=== PATIENT | female | born 1980 | race Two or more races ===

== ENCOUNTER 2024-07-02 19:53 | Emergency (ER) | payer MEDICAID, SELFPAY ==
[2024-07-02 19:54] VITALS: BMI 37.7
[2024-07-02 20:32] VITALS: BP 124/82; PULSE 80; RESP 18; TEMP 36.9; O2SAT 100
--- NOTE | 2024-07-02 21:08 | XR_ITS ---
Examination: CT abdomen with intravenous contrast CT pelvis with intravenous contrast 2-D coronal reconstructions 2-D sagittal reconstructions Date and time of exam:July 02, 2024 at 1052 hours Comparison November 29, 2023 INDICATIONS: Early pain today. CTDI: vol (mGy) 16.20 DLP: (mGycm) 933 Technique: Multiple axial sections of the abdomen and pelvis have been obtained. 64 slice high-resolution scanner used. 3 mm axial sections have been obtained, post intravenous injection 60 cc [id number] 2-D sagittal, coronal reconstructions obtained. Low dose protocols were performed. One or more of the following dose reduction techniques were used; automated exposure control, adjustment of the mA and/or KV according to patient size, use of iterative reconstruction technique. Findings: Small retrocardiac hernia Focal liver or splenic lesion Absent gallbladder 3 cm umbilical hernia containing incarcerated fat Normal appendix No obstruction Uterine areas of fibroid degeneration IMPRESSION: 3 cm umbilical hernia containing incarcerated fat
--- NOTE | 2024-07-02 21:12 | PD.EDRME ---
Rapid Medical Screening Exam RME Arrival date/time: 07/02/24 19:53 44-year-old female with a ventral hernia reports with complaints of pain and inability to reduce the hernia since today Chief Complaint: Abdominal Pain Time Seen by Provider: 07/02/24 20:12 Vital signs: Vital Signs Temperature 98.4 F 07/02/24 20:32 Pulse Rate 80 07/02/24 20:32 Respiratory Rate 18 07/02/24 20:32 Blood Pressure 124/82 07/02/24 20:32 Pulse Oximetry (%) 100 07/02/24 20:32 Oxygen Delivery Method Room Air 07/02/24 20:32
[2024-07-02 21:59] LABS: Basophils # (Auto) 0.1 Thou/mm3 (0.0-0.2); Basophils % (Auto) 1 % (0-2.5); Eosinophils # (Auto) 0.2 Thou/mm3 (0.0-0.5); Eosinophils % (Auto) 2 % (0-10); Hematocrit 25.9 % (36.0-46.0); Immature Granulocytes % (Auto) 0 % (0-0); Immature Granulocytes Auto 0.02 Thou/mm3 (0.00-0.00); Lymphocytes # (Auto) 2.5 Thou/mm3 (1.0-4.8); Lymphocytes % (Auto) 28 % (10-50); Mean Corpuscular Hemoglobin 17.7 pg (25.0-35.0); Mean Corpuscular Volume 61 fL (80-100); Monocytes # (Auto) 0.6 Thou/mm3 (0.0-0.8); Monocytes % (Auto) 7 % (0-12); Neutrophils # (Auto) 5.3 Thou/mm3 (1.8-7.7); Neutrophils % (Auto) 62 % (37-80); Nucleated Red Blood Cell % 0 /100 WBC (0); Platelet Count 275 Thou/mm3 (140-440); RDW Standard Deviation 40.9 fL (36.4-46.3); Red Blood Count 4.24 Miln/mm3 (4.00-5.20); White Blood Count 8.7 Thou/mm3 (3.6-11.0)
[2024-07-02 22:01] LABS: Hemoglobin 7.5 g/dL (12.0-16.0)
[2024-07-02 22:09] LABS: Collection Type, Urine Clean Catch
[2024-07-02 22:24] LABS: Alanine Aminotransferase 12 U/L (10-49); Albumin, Serum 4.4 gm/dL (3.5-5.0); Albumin/Globulin Ratio 1.6 (1.2-2.2); Alkaline Phosphatase 97 U/L (46-116); Anion Gap 7 (7-16); Aspartate Amino Transferase 16 U/L (0-34); BUN/Creatinine Ratio 40 Ratio (12-20); Bilirubin,Total 0.4 mg/dL (0.3-1.2); Blood Urea Nitrogen 20 mg/dL (9-23); Calcium 8.9 mg/dL (8.3-10.6); Calcium (Corrected) 8.9 mg/dL (8.5-10.1); Carbon Dioxide 23.8 mMol/L (20.0-31.0); Chloride 110 mMol/L (98-107); Creatinine (Component) 0.5 mg/dL (0.6-1.3); Estimated Creatinine Clearance 188.9 mL/min (>60); Globulin 2.8 gm/dL (2.3-3.5); Glucose 87 mg/dL (74-106); Osmolality,Calculated 282 (275-295); Potassium 4.2 mMol/L (3.4-5.1); Sodium 141 mMol/L (136-145); Total Protein 7.2 gm/dL (5.7-8.2); eGFR > 60 See Note
[2024-07-02 22:35] LABS: HCG,Qualitative Serum Negative
[2024-07-02 23:33] LABS: Bilirubin,Urine Negative (Negative); Blood,Urine Negative (Negative); Clarity,Urine Clear (Clear/Hazy); Color,Urine Colorless (Lt Yel-Yel); Glucose, Urine Negative (Negative); Ketones,Urine Negative (Negative); Leukocyte Esterase,Urine Positive (Negative); Nitrite,Urine Negative (Negative); Protein,Urine Trace (Neg - Trace); RBC,Urine 6 /hpf (0-3); Squamous Epithelial Cell,Urine 4 /hpf (0-5); Urobilinogen,Urine Negative mg/dL (0.0-1.0); WBC,Urine 7 /hpf (0-5)
--- NOTE | 2024-07-03 00:04 | PRELIM_ITS ---
CT scan of the abdomen and pelvis with intravenous contrast (axial sections with sagittal and coronal reformats) July 02, 2024 2252 hours Clinical History: Hernia r/o incarciration. Comparison: No prior study is available for comparison. Findings: The lung bases are clear. The gallbladder is surgically absent. Gastric sleeve surgery changes are noted. The liver, gallbladder, pancreas, spleen, kidneys and adrenals are unremarkable. No evidence of bowel obstruction. There is small to moderate sized fat containing umbilical hernia with fat stranding. A moderate amount of fecal material is present in the colon. The appendix is within normal limits (coronal images 68-76/173). There is no mesenteric or retroperitoneal adenopathy. The urinary bladder is unremarkable. There are uterine fibroids and nabothian cysts. There is no free fluid or free air. The osseous structures are unremarkable. Impression: Small to moderate sized fat containing umbilical hernia with fat stranding, concerning for fat incarceration. No evidence of bowel obstruction. Report Electronically Signed By: Ney Garrison 07/03/2024 12:03:42 AM [EST]
--- NOTE | 2024-07-03 02:37 | PD.EDABDPN ---
ED Abdominal Pain RME/HPI General Chief Complaint: Abdominal Pain Stated complaint: HERNIA PAIN Time seen by provider: 07/02/24 20:12 Arrival date/time: 07/02/24 19:53 Limitations: no limitations RME / HPI RME / HPI narrative: 07/02/24 19:53 44-year-old female with a ventral hernia reports with complaints of pain and inability to reduce the hernia since today. Dr. [facility] Main ED Evaluation: 44-year-old female with history of hernia reporting pain in the umbilical area that started today. The pain was intermittent and then constant at a 3 out of 10 without radiation. The patient states no fevers, nausea or vomiting. The patient has pain like this in the past but it increased today. Normal bowel movement recently. The patient states that she gets followed by bariatric surgery as she has an appoint with him tomorrow. She has a known hernia and they are attempting to schedule a robotic surgery but today she had increasing pain. No vomiting. Patient felt there was gurgling in her stomach but she was still able to pass gas. No fevers. Related Data Home Medications ?Medication ?Instructions ?Recorded ?Confirmed ergocalciferol (vitamin D2) 1,250 1,250 mcg PO QWEEK 08/18/21 04/23/22 mcg (50,000 unit) capsule levothyroxine 137 mcg tablet 137 mcg PO QDAY 08/18/21 04/23/22 Previous Rx's ?Medication ?Instructions ?Recorded hydrocortisone acetate 25 mg 25 mg [place] BID #24 ea 08/06/22 rectal suppository (Anusol-HC) meclizine 50 mg tablet 50 mg PO BID PRN dizziness #20 tabs 03/26/23 albuterol sulfate 90 mcg/actuation 2 puff inhalation Q6H PRN 06/27/23 aerosol inhaler (Ventolin HFA) shortness of breath or wheezing #8.5 grams dicyclomine 20 mg tablet 20 mg PO BID #14 tabs 11/29/23 prednisone 50 mg tablet 50 mg PO QDAY #7 tabs 02/11/24 Allergies Allergy/AdvReac Type Severity Reaction Status Date / Time No Known Allergies Allergy Verified 03/19/24 10:57 Review of Systems Review of Systems Systems Reviewed: All systems reviewed, normal except as documented Past Medical History Past Medical History NEUROLOGIC: Negative Neurological Disorders or Seizures CARDIAC: Negative Cardiac Disorders or Congestive Heart Failure RESPIRATORY: Negative Chronic Obstructive Pulmonary Disease (COPD) or Asthma GASTROINTESTINAL: Positive Gastrointestinal Disorders, Hiatal Hernia, Gastroesophageal Reflux Disease and Obesity; Negative Hepatitis or Colorectal Cancer GENITOURINARY: Negative Genitourinary Disorders or Renal Disease REPRODUCTIVE: Positive Previous Pregnancies; Negative Breast Cancer MUSCULOSKELETAL: Positive Arthritis; Negative Musculoskeletal Disorders or Bone Cancer ENDOCRINE: Positive Endocrine Disorders and Hypothyroidism; Negative Diabetes Mellitus Type 1 or Diabetes Mellitus Type 2 HEMATOLOGIC: Negative Blood Disorders or Sickle Cell Disease PSYCHO/SOCIAL: Positive Anxiety OTHER HISTORY: Positive Hospitalization; Negative Autoimmune Disease, Down Syndrome, Developmental Delay, Shingles, Falls, Blood Transfusions, Blood Transfusion Reaction, Anesthesia Reactions, Organ Transplant, Chemotherapy, Radiation Therapy, Hyperbaric Therapy, MRSA, VRSA, Vancomycin-Resistant Enterococci, Human Immunodeficiency Virus (HIV), Chicken Pox, Measles, Mumps, Rubella (L[place]uanian Measles), Pertussis, Clostridium Difficile, Cancer, Breast Cancer, Cervical Cancer, Colorectal Cancer, Lung Cancer or Ovarian Cancer Family History FAMILY HISTORY: Positive Family Respiratory Disorders, Family Cardiac Disorders and Family Gastrointestinal Problems; Negative Family Psychiatric Problems, Family Cancer, Family Surgery or Family Anesthesia Reaction Surgical History SURGICAL: Positive Abdominal Surgery, Open Reduction Internal Fixation and Section; Negative Organ Transplant Social History SMOKING STATUS: Never smoker SECOND HAND EXPOSURE: No SUBSTANCE USE: does not use ED Exam General Limitations: Present no limitations General appearance: Present alert and other (Minimal distress) Head Head exam: Present atraumatic Eye Eye exam: Present normal appearance, PERRL and EOMI ENT ENT exam: Present normal exam, normal oropharynx and mucous membranes moist Neck Neck exam: Present normal inspection, full ROM and trachea midline Chest Chest inspection: Present normal inspection and symmetric chest wall rise Respiratory Respiratory exam: Present normal lung sounds bilaterally Cardiovascular Cardiovascular exam: Present regular rate, normal rhythm and normal heart sounds Abdominal Exam Abdominal exam: Present other (Minimal umbilical fullness with tenderness to palpation. No overlying erythema or discoloration. No crepitus. Patient is guarding.) Extremities Exam Extremities exam: Present normal inspection and full ROM Back Exam Back exam: Present normal inspection Neurological Exam Neurological exam: Present alert and oriented X3 Psychiatric Psychiatric exam: Present normal affect and normal mood Skin Skin exam: Present warm, dry, intact and normal color Course Course Course Narrative: Placed in the bed at approximately 3 AM prior to that the patient was in the waiting room. Quality Measures none Orders Category Date Time Status CT Screening NOW Care 07/02/24 21:[address] abdomen pelvis w con Stat Exams 07/02/24 21:08 Taken CBC Stat Lab 07/02/24 21:40 Completed CMP [Comprehensive Metabolic Panel] Stat Lab 07/02/24 21:40 Completed HCG,Qualitative Serum Stat Lab 07/02/24 21:40 Completed UA [Urinalysis] Stat Lab 07/02/24 21:30 Completed Diazepam [Valium] Med 07/03/24 02:51 Discontinued 5 mg PO X1 ONE Reevaluation(s) Reevaluation #1: Improved pain. Patient able to tolerate liquids. Repeat abdominal exam shows no rebound. Vital Signs Vital signs: Vital Signs Temperature 98.4 F 07/02/24 20:32 Pulse Rate 80 07/02/24 20:32 Respiratory Rate 18 07/02/24 20:32 Blood Pressure 124/82 07/02/24 20:32 Pulse Oximetry (%) 100 07/02/24 20:32 Oxygen Delivery Method Room Air 07/02/24 20:32 Pulse ox is 100% on room air, which is normal according to my interpretation. Abdominal Pain MDM MDM Narrative MDM Narrative:: 44-year-old female with previous surgery coming in with known umbilical hernia with abdominal discomfort. CT scan does not show an obstruction, or strangulation or incarcerated hernia. The patient was placed in Trendelenburg and given p.o. Valium and the umbilical hernia was easily reducible on its own. No overlying erythema or change in color and do not suspect strangulation. Patient told that she should get an abdominal binder and to avoid constipation if possible. Return precautions are given and understood. Patient data External records reviewed:: [facility] previous records (Per chart review, patient was seen here on 04/02/24 for food bolus obstruction.) Clinical information provided by:: patient Social determinants that could affect healthcare access:: none Patient has the following chronic illnesses:: History of hernia, thyroid disease, vertigo How is presenting disease/condition affected by chronic disease/condition?: exacerbated by Evaluation data The following diagnostics were reviewed and interpreted by me:: lab results and radiology exam(s) Lab and/or radiology exams considered but not ordered:: None Interpretation Summary: White count is 8.7 and normal. Hemoglobin is 7.5/25 which is at the patient's baseline. Chronic anemia. Platelets are 275 normal. BUN/creatinine are normal. Patient has 7 white cells but no nitrates. At this time I do not feel the patient needs to be treated for UTI. Telerad Preliminary Report Draft Patient: KULDIP ALEMAN. Record#: [id number] Birthdate: 1980 Age/Sex: 44 / F Location: [facility] Attending Dr: Ordering Physician: Date of Service: Procedure(s): Accession Number(s): cc: ~ CT scan of the abdomen and pelvis with intravenous contrast (axial sections with sagittal and coronal reformats) July 02, 2024 2252 hours Clinical History: Hernia r/o incarciration. Comparison: No prior study is available for comparison. Findings: The lung bases are clear. The gallbladder is surgically absent. Gastric sleeve surgery changes are noted. The liver, gallbladder, pancreas, spleen, kidneys and adrenals are unremarkable. No evidence of bowel obstruction. There is small to moderate sized fat containing umbilical hernia with fat stranding. A moderate amount of fecal material is present in the colon. The appendix is within normal limits (coronal images 68-76/173). There is no mesenteric or retroperitoneal adenopathy. The urinary bladder is unremarkable. There are uterine fibroids and nabothian cysts. There is no free fluid or free air. The osseous structures are unremarkable. Impression: Small to moderate sized fat containing umbilical hernia with fat stranding, concerning for fat incarceration. No evidence of bowel obstruction. Report Electronically Signed By: Ney Garrison 07/03/2024 12:03:42 AM Medications / Prescriptions Medications or Prescriptions considered but not ordered:: None Medication administrations:: Medication Administration History Discontinued Medications Diazepam (Diazepam 5 Mg Tablet) 5 mg PO X1 ONE Stop: 07/03/24 02:52 Last Admin: 07/03/24 03:01 Dose: 5 mg Documented By: EF As above Consultations Consultation(s) initiated? (list below): No Consultation #1 (Physician, Specialty, Details): None Diagnosis Differential diagnosis abdominal pain: abdominal pain and other (Hernia, small bowel obstruction, incarcerated hernia, strangulated hernia, constipation,) Most likely diagnosis given after review of the tests above:: see below Admission Indicated Admission indicated?: not indicated Explain why admission is indicated or not indicated:: Patient with improved pain after sitting in the emergency department. CT scan does not show obstruction. Admission Request Was there a request for admission?: No Disposition Plan Disposition Plan: Discharge Discharge Attestation Discharge Attestation: The patient and all family members were given an opportunity to ask questions and understood the discharge instructions. Discharge instructions specifically effects, indications for sooner follow up or return to the emergency department, and the expected course of current diagnosis. Patient condition: Stable Discharge Plan Plan Patient Disposition: HOME (Self Care) Patient condition on transfer: Stable Prescriptions/Referrals Prescriptions/Med Rec: No Action levothyroxine 137 mcg tablet 137 mcg PO QDAY Patient Comments: TAKE 1 TABLET BY MOUTH EVERY DAY ergocalciferol (vitamin D2) 1,250 mcg (50,000 unit) capsule 1,250 mcg PO QWEEK Patient Comments: TAKE 1 CAPSULE BY MOUTH ONCE A WEEK dicyclomine 20 mg tablet 20 mg PO BID Qty: 14 0RF hydrocortisone acetate [Anusol-HC] 25 mg suppository 25 mg KY BID Qty: 24 0RF meclizine 50 mg tablet 50 mg PO BID PRN (Reason: dizziness) Qty: 20 0RF albuterol sulfate [Ventolin HFA] 90 mcg/actuation HFA aerosol inhaler 2 puff inhalation Q6H PRN (Reason: shortness of breath or wheezing) Qty: 8.5 0RF prednisone 50 mg tablet 50 mg PO QDAY Qty: 7 0RF Referrals: Ceci Cunningham [employer] [employer] [Primary Care Provider] - In 1 week Problem List Clinical Impression: Hernia, umbilical Patient/Caregiver Discharge Instructions Education Materials: ED Hernia (Adult) Additional Instructions: Please follow-up with your bariatric surgeon today as scheduled. I suggest that you should start taking MiraLAX 17 g in 8 ounces of water daily to help keep your stool soft to avoid your umbilical hernia from popping out. Please return to emergency department if you are having vomiting, cannot pass gas, you feel like your hernia is out and it will not easily slid back in, or any other concerns. Print Language: Malian Stand Alone Forms: Elizabeth Award Info., Patient Portal Info Letter
[2024-07-03 02:43] VITALS: BP 112/58; PULSE 61; RESP 18; TEMP 36.6; O2SAT 100
[2024-07-03] MEDS: DIAZEPAM 5 MG TABLET PO (03:01)
== END 2024-07-03 03:44 | disposition home or self-care (01) ==
PROVIDERS: Physician Assistant; Emergency Provider Emergency Medicine; PCP Nurse Practitioner Family
DX: K42.9 Umbilical hernia without obstruction or gangrene (principal)
CPT/HCPCS: 36415; 74177; 80053; 81001; 84703; 85025; 99285; A4649; Q9967; A9270

== ENCOUNTER 2024-07-19 23:30 | Emergency (ER) | payer MEDICAID, SELFPAY ==
[2024-07-19 23:41] VITALS: BP 118/63; PULSE 60; RESP 18; TEMP 36.4; O2SAT 99; BMI 38.8
[2024-07-19] MEDS: DIAZEPAM 5 MG TABLET PO (23:59)
[2024-07-20] VITALS (8 sets, daily range): BP systolic 112–143; BP diastolic 54–91; PULSE 50–64; RESP 13–20; TEMP 36.6–36.9; O2SAT 98–100
--- NOTE | 2024-07-20 01:16 | EDNOTE_ITS ---
ED Abdominal Pain RME/HPI General Chief Complaint: Abdominal Pain Stated complaint: ABD PAIN, HERNIA Time seen by provider: 07/19/24 23:54 Arrival date/time: 07/19/24 23:30 RME / HPI RME / HPI narrative: Dr. Allen?s Main ED Evaluation: 44yo female with a history of umbilical hernia presents to the ED for a chief complaint of lower abdominal pain. Patient states she started having lower abdominal pain x tonight. She states she has had her umbilical hernia twice before. She states she has a bariatric surgeon, Dr. Lyons, in [place] and is scheduled for a hernia repair next week on 07/27/24. Patient states her hernia is now out again and has been having significant pain, so she came in for evaluation. She denies any N/V, fever, chills or any other associated symptoms. Related Data Home Medications ?Medication ?Instructions ?Recorded ?Confirmed ergocalciferol (vitamin D2) 1,250 1,250 mcg PO QWEEK 0 08/18/21 04/23/22 mcg (50,000 unit) capsule levothyroxine 137 mcg tablet 137 mcg PO QDAY 08/18/21 04/23/22 Previous Rx's ?Medication ?Instructions ?Recorded hydrocortisone acetate 25 mg 25 mg MS BID #24 ea 08/06 rectal suppository (Anusol-HC) meclizine 50 mg tablet 50 mg PO BID PRN dizziness # 20 tabs 03/26/23 albuterol sulfate 90 mcg/actuation 2 puff inhalation Q 6H PRN 06/27/23 aerosol inhaler (Ventolin HFA) shortness of breath or wheezing #8.5 grams dicyclomine 20 mg tablet 20 mg PO BID #14 tabs prednisone 50 mg tablet 50 mg PO QDAY #7 tabs Allergies Allergy/AdvReac Type Severity Reaction Status Date / Time No Known Allergies Allergy Verified 07/19/24 23:33 Review of Systems Review of Systems Systems Reviewed: All systems reviewed, normal except as documented Past Medical History Past Medical History NEUROLOGIC: Negative Neurological Disorders or Seizures CARDIAC: Negative Cardiac Disorders or Congestive Heart Failure RESPIRATORY: Negative Chronic Obstructive Pulmonary Disease (COPD) or Asthma GASTROINTESTINAL: Positive Gastrointestinal Disorders, Hiatal Hernia, Gastroesophageal Reflux Disease and Obesity; Negative Hepatitis or Colorectal Cancer GENITOURINARY: Negative Genitourinary Disorders or Renal Disease REPRODUCTIVE: Positive Previous Pregnancies; Negative Breast Cancer MUSCULOSKELETAL: Positive Arthritis; Negative Musculoskeletal Disorders or Bone Cancer ENDOCRINE: Positive Endocrine Disorders and Hypothyroidism; Negative Diabetes Mellitus Type 1 or Diabetes Mellitus Type 2 HEMATOLOGIC: Positive Anemia; Negative Blood Disorders or Sickle Cell Disease PSYCHO/SOCIAL: Positive Anxiety OTHER HISTORY: Positive Hospitalization; Negative Autoimmune Disease, Down Syndrome, Developmental Delay, Shingles, Falls, Blood Transfusions, Blood Transfusion Reaction, Anesthesia Reactions, Organ Transplant, Chemotherapy, Radiation Therapy, Hyperbaric Therapy, MRSA, VRSA, Vancomycin-Resistant Enterococci, Human Immunodeficiency Virus (HIV), Chicken Pox, Measles, Mumps, Rubella (Lao Measles), Pertussis, Clostridium Difficile, Cancer, Breast Cancer, Cervical Cancer, Colorectal Cancer, Lung Cancer or Ovarian Cancer Family History FAMILY HISTORY: Positive Family Respiratory Disorders, Family Cardiac Disorders and Family Gastrointestinal Problems; Negative Family Psychiatric Problems, Family Cancer, Family Surgery or Family Anesthesia Reaction Surgical History SURGICAL: Positive Abdominal Surgery, Open Reduction Internal Fixation and Section; Negative Organ Transplant Social History SMOKING STATUS: Never smoker SECOND HAND EXPOSURE: No SUBSTANCE USE: does not use ED Exam Narrative Physical exam: GENERAL APPEARANCE: alert and oriented x 4, well-developed, well-nourished, no acute distress VITALS: All vitals were reviewed and the pulse ox is 99% on room air, which is normal according to my interpretation. HEENT: Normocephalic, atraumatic; pupils equal, round, reactive to light; EOMI; mucous membranes pink, moist; oropharynx clear NECK: Supple LUNGS: CTABL; no wheezes, no rales, no rhonchi HEART: Regular rate, regular rhythm; normal S1, S2; no murmurs ABDOMEN: non distended; soft, no tenderness, no guarding, no rebound; no organomegaly; 8-10cm hard, tender, round mass just superior to the umbilicus that is not reducible BACK: no CVA tenderness EXTREMITIES: atraumatic; no edema NEUROLOGIC: awake; alert and oriented x4; cranial nerves II-XII grossly intact; no focal sensory or motor deficits PSYCHIATRIC: appropriate mood and affect SKIN: warm, dry, normal color; no rashes Course Quality Measures none Orders Category Date Time Status CT Screening NOW Care 07/20/24 01:19 Active Silver Plater STAT Care 07/20/24 01:18 Active Continuous Pulse Oximetry STAT Care 07/20/24 01:18 Completed Insert IV STAT Care 07/20/24 01:18 Active NPO STAT Care 07/20/24 01:[address] abdomen pelvis w con Stat Exams 07/20/24 01:19 Taken CBC Stat Lab 07/20/24 01:52 Completed Comprehensive Metabolic Panel Stat Lab 07/20/24 01:52 Completed HCG Qualitative,Urine Stat Lab 07/20/24 02:19 Completed Lipase Stat Lab 07/20/24 01:52 Completed Magnesium Stat Lab 07/20/24 01:52 Completed Urinalysis Stat Lab 07/20/24 02:19 Completed Diazepam [Valium] Med 07/19/24 23:53 Discontinued 5 mg PO X1 ONE Vital Signs Vital signs: Vital Signs Temperature 97.6 F 07/19/24 23:41 Pulse Rate 60 07/19/24 23:41 Respiratory Rate 18 07/19/24 23:41 Blood Pressure 118/63 07/19/24 23:41 Pulse Oximetry (%) 99 07/19/24 23:41 Oxygen Delivery Method Room Air 07/19/24 23:41 Abdominal Pain MDM MDM Narrative MDM Narrative:: Scribe Attestation: 07/20/24 - Farnaz Nunez am scribing for and in the presence of Dr. Allen. Patient data External records reviewed:: [facility] previous records (Per chart review, patient was seen here on 07/03/24 for an umbilical hernia.) Clinical information provided by:: patient Social determinants that could affect healthcare access:: none Patient has the following chronic illnesses:: umbilical hernia How is presenting disease/condition affected by chronic disease/condition?: caused by Evaluation data The following diagnostics were reviewed and interpreted by me:: lab results and radiology exam(s) Lab and/or radiology exams considered but not ordered:: none Interpretation Summary: WBC count is normal, HnH is at the patient's baseline, CMP is normal, Lipase is normal, UA is unremarkable, HCG is negative, according to my interpretation. ------- Telerad Preliminary Report Draft Patient: KULDIP ALEMAN. Record#: [id number] Birthdate: 1980 Age/Sex: 44 / F Location: [facility] Attending Dr: Ordering Physician: Date of Service: Procedure(s): Accession Number(s): cc: ~ CT scan of the abdomen and pelvis with intravenous contrast (axial sections with sagittal and coronal reformats) July 20, 2024 at 0248 hours Clinical History: Suprapubic hernia. Tender. Incarcerated suspected. Comparison: Reference is made to the prior report dated July 02, 2024. Findings: The lung bases are clear. The gallbladder is surgically absent. The liver, gallbladder, pancreas, spleen, kidneys and adrenals are unremarkable. Gastric sleeve surgery changes are noted. No evidence of bowel obstruction. A moderate amount of fecal material is noted within the colon. A 9 cm fat containing umbilical hernia is with fat stranding, as previously described. A moderate amount of fecal material is present in the colon. The appendix is within normal limits. There is no mesenteric or retroperitoneal adenopathy. The urinary bladder is unremarkable. There are uterine fibroids. There is no fr ee fluid or free air. The osseous structures are unremarkable. Impression: 1. Fat containing umbilical hernia with fat stranding, concerning for fat incarceration. 2. Moderate constipation. 3. Other findings as described above. Discussion Details: Results verbally communicated to : Dr. Allen at 04:57 AM 07/20/2024 Report Electronically Signed By: Oswaldo Sandra 07/20/2024 4:59:34 AM Medications / Prescriptions Medications or Prescriptions considered but not ordered:: none Medication administrations:: Medication Administration History Discontinued Medications Diazepam (Diazepam 5 Mg Tablet) 5 mg PO X1 ONE Stop: 07/19/24 23:54 Last Admin: 07/19/24 23:59 Dose: 5 mg Documented By: see above Consultations Consultation(s) initiated? (list below): No Diagnosis Differential diagnosis abdominal pain: other (incarcerated umbilical hernia, SBO, abdominal wall mass) Most likely diagnosis given after review of the tests above:: see below Admission Indicated Admission indicated?: not indicated Explain why admission is indicated or not indicated:: Pending callback from [facility] [place]. Admission Request Was there a request for admission?: No Disposition Plan Disposition Plan: other (specify) (Signed out to Dr. Graff at 0600 pending callback from [facility].) Discharge Plan Prescriptions/Referrals Prescriptions/Med Rec: No Action levothyroxine 137 mcg tablet 137 mcg PO QDAY Patient Comments: TAKE 1 TABLET BY MOUTH EVERY DAY ergocalciferol (vitamin D2) 1,250 mcg (50,000 unit) capsule 1,250 mcg PO QWEEK Patient Comments: TAKE 1 CAPSULE BY MOUTH ONCE A WEEK dicyclomine 20 mg tablet 20 mg PO BID Qty: 14 0RF hydrocortisone acetate [Anusol-HC] 25 mg suppository 25 mg MS BID Qty: 24 0RF meclizine 50 mg tablet 50 mg PO BID PRN (Reason: dizziness) Qty: 20 0RF albuterol sulfate [Ventolin HFA] 90 mcg/actuation HFA aerosol inhaler 2 puff inhalation Q6H PRN (Reason: shortness of breath or wheezing) Qty: 8.5 0RF prednisone 50 mg tablet 50 mg PO QDAY Qty: 7 0RF Referrals: Ceci Cunningham [facility] [employer] [employer] [Primary Care Provider] - In 1 week Problem List Clinical Impression: Incarcerated umbilical hernia Patient/Caregiver Discharge Instructions Print Language: Hungarian
--- NOTE | 2024-07-20 01:19 | XR_ITS ---
Examination: CT abdomen with intravenous contrast CT pelvis with intravenous contrast 2-D coronal reconstructions 2-D sagittal reconstructions Date and time of exam:July 20, 2024 0248 hours INDICATIONS: Tenderness in the lower abdominal region today, diagnosis suprapubic hernia incarcerated hernia CTDI: vol (mGy) 13.5 DLP: (mGycm) 789 Technique: Multiple axial sections of the abdomen and pelvis have been obtained. 64 slice high-resolution scanner used. 3 mm axial sections have been obtained, post intravenous injection 60 cc [id number] 2-D sagittal, coronal reconstructions obtained. Low dose protocols were performed. One or more of the following dose reduction techniques were used; automated exposure control, adjustment of the mA and/or KV according to patient size, use of iterative reconstruction technique. Findings: Retrocardiac gastric hernia Gastric sutures Splenomegaly 13 cm No focal liver lesions Absent gallbladder No pancreatic or adrenal mass No renal or ureteral calculi, no hydronephrosis Aorta normal size 5 cm umbilical hernia containing incarcerated fat No bowel present in this hernia defect No bowel obstruction Abundant stool in the right colon Normal appendix Anteverted uterus No adnexal mass Urinary bladder intact Moderate degenerative disc disease L5-S1 IMPRESSION: 5 cm umbilical hernia containing incarcerated fat
--- NOTE | 2024-07-20 01:43 | PC.NURSE ---
Pt to room 18 at this time from lobby; assumed care.
[2024-07-20 02:05] LABS: Basophils # (Auto) 0.1 Thou/mm3 (0.0-0.2); Basophils % (Auto) 1 % (0-2.5); Eosinophils # (Auto) 0.2 Thou/mm3 (0.0-0.5); Eosinophils % (Auto) 3 % (0-10); Hematocrit 29.1 % (36.0-46.0); Immature Granulocytes % (Auto) 0 % (0-0); Immature Granulocytes Auto 0.03 Thou/mm3 (0.00-0.00); Lymphocytes # (Auto) 2.4 Thou/mm3 (1.0-4.8); Lymphocytes % (Auto) 29 % (10-50); Mean Corpuscular HGB Conc 29.2 g/dl (31.0-37.0); Mean Corpuscular Hemoglobin 17.5 pg (25.0-35.0); Mean Corpuscular Volume 60 fL (80-100); Monocytes # (Auto) 0.4 Thou/mm3 (0.0-0.8); Monocytes % (Auto) 5 % (0-12); Neutrophils # (Auto) 5.1 Thou/mm3 (1.8-7.7); Neutrophils % (Auto) 62 % (37-80); Nucleated Red Blood Cell % 0 /100 WBC (0); Platelet Count 345 Thou/mm3 (140-440); RDW Standard Deviation 41.1 fL (36.4-46.3); Red Blood Count 4.87 Miln/mm3 (4.00-5.20); White Blood Count 8.2 Thou/mm3 (3.6-11.0)
[2024-07-20 02:14] LABS: Hemoglobin 8.5 g/dL (12.0-16.0)
[2024-07-20 02:18] LABS: Alanine Aminotransferase 12 U/L (10-49); Albumin, Serum 4.6 gm/dL (3.5-5.0); Albumin/Globulin Ratio 1.5 (1.2-2.2); Alkaline Phosphatase 101 U/L (46-116); Anion Gap 8 (7-16); Aspartate Amino Transferase 17 U/L (0-34); BUN/Creatinine Ratio 23 Ratio (12-20); Bilirubin,Total 0.6 mg/dL (0.3-1.2); Blood Urea Nitrogen 14 mg/dL (9-23); Calcium 9.9 mg/dL (8.3-10.6); Calcium (Corrected) 9.9 mg/dL (8.5-10.1); Carbon Dioxide 26.7 mMol/L (20.0-31.0); Chloride 105 mMol/L (98-107); Creatinine (Component) 0.6 mg/dL (0.6-1.3); Estimated Creatinine Clearance 154.8 mL/min (>60); Glucose 90 mg/dL (74-106); Lipase 33 U/L (12-53); Magnesium 2.2 mg/dL (1.6-2.6); Osmolality,Calculated 279 (275-295); Sodium 140 mMol/L (136-145); Total Protein 7.6 gm/dL (5.7-8.2); eGFR > 60 See Note
[2024-07-20 02:25] LABS: Collection Type, Urine Clean Catch
--- NOTE | 2024-07-20 02:43 | PC.NURSE ---
Pt to CT scan at this time.
[2024-07-20 02:53] LABS: Bilirubin,Urine Negative (Negative); Blood,Urine Negative (Negative); Clarity,Urine Clear (Clear/Hazy); Color,Urine Colorless (Lt Yel-Yel); Glucose, Urine Negative (Negative); Ketones,Urine Negative (Negative); Leukocyte Esterase,Urine Negative (Negative); Nitrite,Urine Negative (Negative); PH,Urine 6.5 (5.0-7.0); Protein,Urine Negative (Neg - Trace); RBC,Urine 1 /hpf (0-3); Specific Gravity,Urine 1.009 (1.001-1.035); Squamous Epithelial Cell,Urine 4 /hpf (0-5); Urobilinogen,Urine Negative mg/dL (0.0-1.0); WBC,Urine 3 /hpf (0-5)
[2024-07-20 02:54] LABS: HCG Qualitative,Urine Negative
--- NOTE | 2024-07-20 05:00 | PRELIM_ITS ---
CT scan of the abdomen and pelvis with intravenous contrast (axial sections with sagittal and coronal reformats) July 20, 2024 at 0248 hours Clinical History: Suprapubic hernia. Tender. Incarcerated suspected. Comparison: Reference is made to the prior report dated July 02, 2024. Findings: The lung bases are clear. The gallbladder is surgically absent. The liver, gallbladder, pancreas, spleen, kidneys and adrenals are unremarkable. Gastric sleeve surgery changes are noted. No evidence of bowel obstruction. A moderate amount of fecal material is noted within the colon. A 9 cm fat containing umbilical hernia is with fat stranding, as previously described. A moderate amount of fecal material is present in the colon. The appendix is within normal limits. There is no mesenteric or retroperitoneal adenopathy. The urinary bladder is unremarkable. There are uterine fibroids. There is no free fluid or free air. The osseous structures are unremarkable. Impression: 1. Fat containing umbilical hernia with fat stranding, concerning for fat incarceration. 2. Moderate constipation. 3. Other findings as described above. Discussion Details: Results verbally communicated to : Dr. Allen at 04:57 AM 07/20/2024 Report Electronically Signed By: Oswaldo Sandra 07/20/2024 4:59:34 AM [EST]
--- NOTE | 2024-07-20 06:19 | PC.NURSE ---
Pt ambulatory to restroom.
--- NOTE | 2024-07-20 06:43 | EDNOTE_ITS ---
Emergency Room Addendum Addendum Narrative: 0600: Care assumed from Dr. Allen, the previous shift emergency physician. Past medical, surgical, social and family history reviewed. Vitals and home medications reviewed. I will assume the care of the patient at this time, pending callback from [facility]. Please refer to the emergency department record for history and examination from initial visit.? Nursing notes reviewed by me. Vital signs reviewed by me. [facility] medical records reviewed by me. 44 year old female with history of gastric sleeve revision for gastric bypass due to hiatal hernia and umbilical hernia presented to the ED for evaluation of abdominal pain today. States she was performing extra house work yesterday, consisting of lifting, and felt her hernia pop out. States in the past she is able to reduce on her own by lying flat on the floor with multiple pillows under her bottom. However, states she attempted to reduce and was unsuccessful. Denies any nausea, vomiting, diarrhea. She states she has a bariatric surgeon, Dr. Lyons, in [place] and is scheduled for a hernia repair next week on 07/27/24. Last night my colleague attempted to reduce but was unable to secondary to pain. Patient was given 5mg of Valium however patient as unable to tolerate due to pain. Patient reported in the past, she has not required any medications to reduce the hernia. Plan to given a higher dose of Valium and Tylenol. 0700: I spoke with transfer nurse at [facility]. State they will try and contact patients surgeon. I advised we would call back if the hernia was successfully reduced. I attempted to reduce the hernia and was only partially reducible. 1140: I spoke with patients bariatric surgeon Dr. Lyons. States the surgery is elective and not emergent. States patient can follow up with him next week for her scheduled surgery 07/27/2024. 1200: I spoke with surgeon Dr. Tobar. Discussed patients PMHx, HPI, ED course, exam findings, labs, and radiology results. She also reports the surgery is elective and can follow up with her surgeon next week. Patient reports after partial reduction she has had some improvement in pain. States she has been able to ambulate around the ER by holding her hernia with minimal pain. Patient was provided with an abdominal binder and discharged home. DISPOSITION: Home DIAGNOSIS: Incarcerated umbilical hernia
[2024-07-20] MEDS: IBUPROFEN TAB 600 MG TABLET PO (06:48)
[2024-07-20] MEDS: ACETAMINOPHEN 325 MG TABLET 650 MG PO (06:48)
[2024-07-20] MEDS: DIAZEPAM 5 MG TABLET 10 MG PO (06:48)
--- NOTE | 2024-07-20 08:16 | PC.CM ---
Addendum entered by Mili Pedro RN 07/20/24 15:14: [address] Graff and he states transfer request has been canceled. Original Note: I reviewed notes and I spoke to Dr. Graff. He states patient has her doctor at [facility] and she was scheduled for a hernia repair next week with Dr. Lyons. Dr. Graff states he spoke to [facility] this morning and he let them know he is trying to reduce the hernia her at our hospital. If he is not able to reduce the hernia we may need to try and transfer to [place]. [facility] is going to reach out to Dr. Lyons to let him know the situation.
== END 2024-07-20 13:26 | disposition home or self-care (01) ==
PROVIDERS: Emergency Medicine; Emergency Provider Emergency Medicine; PCP Nurse Practitioner Family
DX: K42.0 Umbilical hernia with obstruction, without gangrene (principal)
CPT/HCPCS: 36415; 74177; 80053; 81001; 81025; 83690; 83735; 85025; 99285; A4649; Q9967; A9270

== ENCOUNTER 2024-10-11 11:34 | Emergency (ER) | payer MEDICAID, SELFPAY ==
[2024-10-11 11:34] VITALS: BMI 36.0
[2024-10-11 11:48] VITALS: BP 124/68; PULSE 59; RESP 18; TEMP 36.8; O2SAT 99
--- NOTE | 2024-10-11 11:54 | EKG_ITS ---
[facility] Test Date: 2024-10-11 Pat Name: KULDIP ALEMAN Department: Room: - Gender: Female Incident Analyst: : 1980 Requested By: Vish Tabares Order Number: [id number] Reading MD: Vish Tabares Measurements Intervals [place] Rate: 65 P: 42 WV: 176 QRS: -5 QRSD: 89 T: 25 QT: 408 QTc: 425 Interpretive Statements SINUS RHYTHM LOW QRS VOLTAGE IN PRECORDIAL LEADS [QRS DEFLECTION < 1.0 mV IN CHEST LEADS] Compared to ECG 02/23/2024 12:24:43 Low QRS voltage now present /store/S0/[id number]/[id number].pdf
--- NOTE | 2024-10-11 11:55 | PD.EDRME ---
Rapid Medical Screening Exam RME Arrival date/time: 10/11/24 11:34 44-year-old female with a history of anemia, hypothyroidism presents to the emergency room with a chief complaint of dizziness, lightheadedness, weakness and fatigue x 1 week I have greeted and performed a focused initial assessment of this patient. A comprehensive ED assessment and evaluation of the patient, analysis of all test results, and completion of the medical decision making process will be conducted by additional ED providers. Chief Complaint: General Adult/Misc Complain Time Seen by Provider: 10/11/24 11:47 Vital signs: Vital Signs Temperature 98.2 F 10/11/24 11:48 Pulse Rate 59 L 10/11/24 11:48 Respiratory Rate 18 10/11/24 11:48 Blood Pressure 124/68 10/11/24 11:48 Pulse Oximetry (%) 99 10/11/24 11:48 Oxygen Delivery Method Room Air 10/11/24 11:48 Vital signs reviewed by provider: Yes
[2024-10-11 12:21] LABS: Basophils # (Auto) 0.1 Thou/mm3 (0.0-0.2); Basophils % (Auto) 1 % (0-2.5); Eosinophils # (Auto) 0.2 Thou/mm3 (0.0-0.5); Eosinophils % (Auto) 2 % (0-10); Hematocrit 28.7 % (36.0-46.0); Immature Granulocytes % (Auto) 0 % (0-0); Immature Granulocytes Auto 0.01 Thou/mm3 (0.00-0.00); Lymphocytes # (Auto) 2.4 Thou/mm3 (1.0-4.8); Lymphocytes % (Auto) 30 % (10-50); Mean Corpuscular HGB Conc 30.3 g/dl (31.0-37.0); Mean Corpuscular Hemoglobin 18.4 pg (25.0-35.0); Mean Corpuscular Volume 61 fL (80-100); Monocytes # (Auto) 0.7 Thou/mm3 (0.0-0.8); Monocytes % (Auto) 9 % (0-12); Neutrophils # (Auto) 4.7 Thou/mm3 (1.8-7.7); Neutrophils % (Auto) 58 % (37-80); Nucleated Red Blood Cell % 0 /100 WBC (0); Platelet Count 288 Thou/mm3 (140-440); RDW Standard Deviation 45.1 fL (36.4-46.3); Red Blood Count 4.73 Miln/mm3 (4.00-5.20); White Blood Count 8.1 Thou/mm3 (3.6-11.0)
[2024-10-11 12:22] LABS: Hemoglobin 8.7 g/dL (12.0-16.0)
[2024-10-11 12:36] LABS: Partial Thromboplastin Time 26.8 Seconds (22.0-36.0); Prothrombin Time 11.1 Seconds (9.0-12.2)
[2024-10-11 12:39] LABS: Alanine Aminotransferase 13 U/L (10-49); Albumin, Serum 4.3 gm/dL (3.5-5.0); Albumin/Globulin Ratio 1.5 (1.2-2.2); Alkaline Phosphatase 92 U/L (46-116); Anion Gap 8 (7-16); Aspartate Amino Transferase 18 U/L (0-34); BUN/Creatinine Ratio 30 Ratio (12-20); Bilirubin,Total 0.5 mg/dL (0.3-1.2); Blood Urea Nitrogen 18 mg/dL (9-23); Calcium 8.4 mg/dL (8.3-10.6); Calcium (Corrected) 8.4 mg/dL (8.5-10.1); Carbon Dioxide 25.7 mMol/L (20.0-31.0); Chloride 105 mMol/L (98-107); Creatinine (Component) 0.6 mg/dL (0.6-1.3); Estimated Creatinine Clearance 153.6 mL/min (>60); Globulin 2.8 gm/dL (2.3-3.5); Glucose 89 mg/dL (74-106); Osmolality,Calculated 278 (275-295); Potassium 4.7 mMol/L (3.4-5.1); Sodium 139 mMol/L (136-145); Total Protein 7.1 gm/dL (5.7-8.2); Troponin I < 0.002 ng/mL (0.0-0.045); eGFR > 60 See Note
[2024-10-11 12:43] LABS: B-Type Natriuretic Peptide 40 pg/mL (0-100)
--- NOTE | 2024-10-11 13:42 | PD.EDADULT ---
ED General RME/HPI General Chief complaint: General Adult/Misc Complain Stated complaint: DIZZINESS X 1WK, HX OF ANEMIA Time Seen by Provider: 10/11/24 11:47 Arrival date/time: 10/11/24 11:34 RME / HPI RME / HPI narrative: 10/11/24 11:34 44-year-old female with a history of anemia, hypothyroidism presents to the emergency room with a chief complaint of dizziness, lightheadedness, weakness and fatigue x 1 week I have greeted and performed a focused initial assessment of this patient. A comprehensive ED assessment and evaluation of the patient, analysis of all test results, and completion of the medical decision making process will be conducted by additional ED providers. DR. DEY MAIN ED EVALUATION 44 year old female with history of hypothyroidism, chronic anemia (currently receiving iron injections every other day), and s/p gastric bypass surgery presents to the ED for evaluation of dizziness. She reports a longstanding history of intermittent dizziness that typically occurs after her menses. However, over the past 7 days, she has experienced persistent dizziness that is notably worse in the mornings. She describes the sensation as lightheadedness, a ?fuzzy? feeling, and a sensation of nearly passing out. Accompanied by numbness and tingling in both feet. She denies any episodes of syncope, fever, chills, night sweats, or recent illness. Related Data Home Medications ?Medication ?Instructions ?Recorded ?Confirmed ergocalciferol (vitamin D2) 1,250 1,250 mcg PO QWEEK 08/18/21 04/23/22 mcg (50,000 unit) capsule levothyroxine 137 mcg tablet 137 mcg PO QDAY 08/18/21 04/23/22 Previous Rx's ?Medication ?Instructions ?Recorded hydrocortisone acetate 25 mg 25 mg DE BID #24 ea 08/06/22 rectal suppository (Anusol-HC) meclizine 50 mg tablet 50 mg PO BID PRN dizziness #20 tabs 03/26/23 albuterol sulfate 90 mcg/actuation 2 puff inhalation Q6H PRN 06/27/23 aerosol inhaler (Ventolin HFA) shortness of breath or wheezing #8.5 grams dicyclomine 20 mg tablet 20 mg PO BID #14 tabs 11/29/23 prednisone 50 mg tablet 50 mg PO QDAY #7 tabs 02/11/24 Allergies Allergy/AdvReac Type Severity Reaction Status Date / Time No Known Allergies Allergy Verified 10/11/24 11:36 Review of Systems Review of Systems Narrative Review of Systems: GEN: No fever, no chills, no weight loss, +feeling light headed and dizzy EYES: No discharge, no visual changes, no pain HEENT: No ear pain, no congestion, no sore throat PULM: No shortness of breath, no cough, no congestion CV: No chest pain, no dyspnea on exertion, no palpitations GI: No nausea, no vomiting, no diarrhea, no pain, no constipation : No frequency, no urgency, no dysuria MUSC/SKEL: No joint pain, no back pain SKIN: No rash NEURO: No weakness, no headache Past Medical History Past Medical History GASTROINTESTINAL: Positive Gastrointestinal Disorders, Hiatal Hernia, Gastroesophageal Reflux Disease and Obesity REPRODUCTIVE: Positive Previous Pregnancies MUSCULOSKELETAL: Positive Arthritis ENDOCRINE: Positive Endocrine Disorders and Hypothyroidism HEMATOLOGIC: Positive Anemia PSYCHO/SOCIAL: Positive Anxiety OTHER HISTORY: Positive Hospitalization Family History FAMILY HISTORY: Positive Family Respiratory Disorders, Family Cardiac Disorders and Family Gastrointestinal Problems Surgical History SURGICAL: Positive Abdominal Surgery, Open Reduction Internal Fixation and Section Social History SMOKING STATUS: Never smoker SECOND HAND EXPOSURE: No SUBSTANCE USE: does not use ED Exam Narrative Physical exam: GENERAL APPEARANCE: alert and oriented x 4, well-developed, well-nourished, no acute distress HEENT: Normocephalic, atraumatic; pupils equal, round, reactive to light; EOMI; mucous membranes pink, moist; oropharynx clear NECK: Supple LUNGS: CTABL; no wheezes, no rales, no rhonchi HEART: Regular rate, regular rhythm; normal S1, S2; no murmurs ABDOMEN: non distended; normal BS; soft, no tenderness, no guarding, no rebound; no masses, no organomegaly, no hernia BACK: no CVA tenderness EXTREMITIES: atraumatic; no edema NEUROLOGIC: awake; alert and oriented x4; cranial nerves II-XII grossly intact; no focal sensory or motor deficits PSYCHIATRIC: appropriate mood and affect SKIN: warm, dry, normal color; no rashes Course Quality Measures none Orders Category Date Time Status EKG (ED ONLY) *Do not use* NOW Care 10/11/24 11:54 Completed EKG (ED Only) Stat Exams 10/11/24 11:54 Draft B-Type Natriuretic Peptide Stat Lab 10/11/24 12:03 Completed CBC Stat Lab 10/11/24 12:03 Completed Comprehensive Metabolic Panel Stat Lab 10/11/24 12:03 Completed Free T4 (Free Thyroxine) Stat Lab 10/11/24 12:03 Completed Partial Thromboplastin Time Stat Lab 10/11/24 12:03 Completed Prothrombin Time with INR Stat Lab 10/11/24 12:03 Completed Thyroid Stimulating Hormone Stat Lab 10/11/24 12:03 Completed Troponin I Stat Lab 10/11/24 12:03 Completed Type and Screen Stat Lab 10/11/24 12:03 Completed Meclizine HCl [Antivert] Med 10/11/24 13:48 Discontinued 25 mg PO X1 ONE Vital Signs Vital signs: Vital Signs Temperature 98.2 F 10/11/24 11:48 Pulse Rate 59 L 10/11/24 11:48 Respiratory Rate 18 10/11/24 11:48 Blood Pressure 124/68 10/11/24 11:48 Pulse Oximetry (%) 99 10/11/24 11:48 Oxygen Delivery Method Room Air 10/11/24 11:48 Pulse ox is 99% on room air which is adequate. Discharge Plan Plan Patient Disposition: HOME (Self Care) Prescriptions/Referrals Prescriptions/Med Rec: No Action levothyroxine 137 mcg tablet 137 mcg PO QDAY Patient Comments: TAKE 1 TABLET BY MOUTH EVERY DAY ergocalciferol (vitamin D2) 1,250 mcg (50,000 unit) capsule 1,250 mcg PO QWEEK Patient Comments: TAKE 1 CAPSULE BY MOUTH ONCE A WEEK dicyclomine 20 mg tablet 20 mg PO BID Qty: 14 0RF hydrocortisone acetate [Anusol-HC] 25 mg suppository 25 mg DE BID Qty: 24 0RF meclizine 50 mg tablet 50 mg PO BID PRN (Reason: dizziness) Qty: 20 0RF albuterol sulfate [Ventolin HFA] 90 mcg/actuation HFA aerosol inhaler 2 puff inhalation Q6H PRN (Reason: shortness of breath or wheezing) Qty: 8.5 0RF prednisone 50 mg tablet 50 mg PO QDAY Qty: 7 0RF Referrals: Ceci Cunningham, [facility] [Primary Care Provider] - In 1 week Problem List Clinical Impression: Dizziness Patient/Caregiver Discharge Instructions Education Materials: ED Dizziness, Uncertain Cause Print Language: Citizen Of [place] Stand Alone Forms: Elizabeth Award Info., Patient Portal Info Letter MDM Narrative MDM hospital course (for use when minimal MDM required): ISuzy, am scribing for and in the presence of Dr. Dey. 1435: TSH level within normal limits. Orthostatic vital signs within normal limits. Patient remains clinically stable throughout the emergency department visit. We reviewed all the results, analysis, and treatment plans. Patient is amenable to discharge. Strict return precautions were outlined. Patient was discharged in stable condition. Clinical Information Provided by: patient Medical Records reviewed [facility] Medical Records additional comments: I reviewed ED visit on 07/20/2024 Meds/Rx considered, not ordered None Labs/Rad/Tests considered, not ordered None Chronic Illness/Social Conditions which may negatively complicate care or outcome(s)-explain: None or not applicable EKG Interpretation EKG #1: EKG Interpretation: EKG 10/11/2024 @ 12:00. Interpreted by me shows sinus rhythm, rate 60, normal axis, normal intervals, no evidence of acute ischemia. Labs Labs: Interpreted by me Lab(s) Interpretation(s): Patient is chronically anemic, last hgb 06/2024 was 8.5 g/dL Imaging Imaging interpretation: none or see narrative above Medication Administration(s) Medication Administration History Discontinued Medications Meclizine HCl (Meclizine Hcl 25 Mg Tablet) 25 mg PO X1 ONE Stop: 10/11/24 13:49 Last Admin: 10/11/24 14:45 Dose: 25 mg Documented By: See above
[2024-10-11 14:12] VITALS: BP 110/72; BP 110/73; BP 120/80; PULSE 59; PULSE 62; PULSE 70
[2024-10-11 14:31] LABS: Free T4 (Free Thyroxine) 1.15 ng/dL (0.89-1.76); Thyroid Stimulating Hormone 3.69 uIU/mL (0.55-4.78)
[2024-10-11] MEDS: MECLIZINE HCL 25 MG TABLET PO (14:45)
== END 2024-10-11 14:51 | disposition home or self-care (01) ==
PROVIDERS: Nurse Practitioner Family; Emergency Provider Emergency Medicine; PCP Nurse Practitioner Family
DX: R42 Dizziness and giddiness (principal); E03.9 Hypothyroidism, unspecified; D64.9 Anemia, unspecified; Z98.84 Bariatric surgery status
CPT/HCPCS: 36415; 80053; 83880; 84439; 84443; 84484; 85025; 85610; 85730; 86850; 86900; 86901; 93005; 99283; A9270

== ENCOUNTER 2025-01-05 07:17 | Emergency (ER) | payer MEDICAID, SELFPAY ==
[2025-01-05 07:30] VITALS: BP 128/73; PULSE 61; RESP 19; TEMP 36.7; O2SAT 100; BMI 36.5
--- NOTE | 2025-01-05 07:38 | XR_ITS ---
Examination: CT abdomen and pelvis without contrast. Coronal 3-D reconstructions. Sagittal 2-D reconstructions. Date and time of exam:January 05, 2025, 0820 hours Comparison April 19, 2025 INDICATIONS: Diarrhea and nausea beginning 3 days ago CTDI: vol (mGy): 16 DLP: (mGycm): 911.9 Technique: Axial images of the abdomen have been obtained, 3 mm slice thickness Intravenous contrast material has not been administered. Low dose protocols were performed. One or more of the following dose reduction techniques were used; automated exposure control, adjustment of the mA and/or KV according to patient size, use of iterative reconstruction technique. Findings: No focal liver lesions Gastric sutures Hepatomegaly 18 cm Absent gallbladder No biliary tract dilatation No pancreatic or adrenal mass No renal or ureteral calculi, no hydronephrosis 19 mm umbilical hernia containing fluid and fat Normal appendix There is mild inflammatory change involving the peritoneum in the pelvis, for instance axial image 157 Anteverted uterus Small ovarian follicular cysts The uterus appears partly bicornuate Urinary bladder is contracted with thickened urinary bladder wall up to 16 mm Moderate degenerative disc disease L5-S1 with 4 mm calcified left paracentral disc with moderate left L5 ganglionic compression IMPRESSION: 19 mm umbilical hernia containing fat and fluid Normal appendix There appears to be mild inflammatory change involving the peritoneum in the pelvis, clinical correlation advised Recommend pelvic sonography follow-up Cystitis pattern
[2025-01-05 08:26] LABS: Basophils # (Auto) 0.1 Thou/mm3 (0.0-0.2); Basophils % (Auto) 1 % (0-2.5); Eosinophils # (Auto) 0.3 Thou/mm3 (0.0-0.5); Eosinophils % (Auto) 4 % (0-10); Hematocrit 32.9 % (36.0-46.0); Hemoglobin 9.7 g/dL (12.0-16.0); Immature Granulocytes Auto 0.02 Thou/mm3 (0.00-0.00); Lymphocytes # (Auto) 2.0 Thou/mm3 (1.0-4.8); Lymphocytes % (Auto) 25 % (10-50); Mean Corpuscular HGB Conc 29.5 g/dl (31.0-37.0); Mean Corpuscular Hemoglobin 19.5 pg (25.0-35.0); Mean Corpuscular Volume 66 fL (80-100); Monocytes # (Auto) 0.5 Thou/mm3 (0.0-0.8); Monocytes % (Auto) 6 % (0-12); Neutrophils # (Auto) 5.3 Thou/mm3 (1.8-7.7); Neutrophils % (Auto) 65 % (37-80); Nucleated Red Blood Cell # 0.00 Thou/mm3 (0.00-0.00); Nucleated Red Blood Cell % 0 /100 WBC (0); Platelet Count 330 Thou/mm3 (140-440); RDW Standard Deviation 45.1 fL (36.4-46.3); Red Blood Count 4.97 Miln/mm3 (4.00-5.20); White Blood Count 8.2 Thou/mm3 (3.6-11.0)
[2025-01-05 08:54] LABS: Alanine Aminotransferase 9 U/L (10-49); Albumin, Serum 4.4 gm/dL (3.5-5.0); Albumin/Globulin Ratio 1.8 (1.2-2.2); Alkaline Phosphatase 95 U/L (46-116); Anion Gap 9 (7-16); Aspartate Amino Transferase 15 U/L (0-34); BUN/Creatinine Ratio 18 Ratio (12-20); Bilirubin,Total 0.6 mg/dL (0.3-1.2); Blood Urea Nitrogen 11 mg/dL (9-23); Calcium 9.0 mg/dL (8.3-10.6); Calcium (Corrected) 9.0 mg/dL (8.5-10.1); Carbon Dioxide 25.7 mMol/L (20.0-31.0); Chloride 105 mMol/L (98-107); Creatinine (Component) 0.6 mg/dL (0.6-1.3); Estimated Creatinine Clearance 149.7 mL/min (>60); Globulin 2.5 gm/dL (2.3-3.5); Glucose 87 mg/dL (74-106); Lipase 35 U/L (12-53); Osmolality,Calculated 277 (275-295); Potassium 3.9 mMol/L (3.4-5.1); Sodium 140 mMol/L (136-145); Total Protein 6.9 gm/dL (5.7-8.2); eGFR > 60 See Note
--- NOTE | 2025-01-05 09:23 | XR_ITS ---
Examination: Pelvic ultrasound, transabdominal, complete Technique: Transabdominal ultrasound of the pelvis performed using grayscale imaging Date and time of exam: January 05, 2025 0934 hours INDICATIONS: Mid abdominal pelvic pain beginning 5 days ago FINDINGS: Uterus 12.5 cm Hyperechoic lesion in the endometrium 17 x 12 x 16 mm Endometrial stripe 12 mm Right ovary 3.6 cm arterial flow. Left ovary obscured by bowel gas IMPRESSION: Endometrial mass, 17 x 12 x 16 mm, differential would include early malignant neoplasm of the endometrium, recommend transvaginal pelvic sonography follow-up
[2025-01-05 10:35] LABS: Collection Type, Urine Clean Catch
[2025-01-05 10:37] VITALS: BP 126/80; PULSE 62; RESP 19; TEMP 36.7; O2SAT 100
[2025-01-05 10:51] LABS: Bilirubin,Urine Negative (Negative); Blood,Urine Negative (Negative); Clarity,Urine Clear (Clear/Hazy); Color,Urine Lt-Yellow (Lt Yel-Yel); Culture Indicated,Urine Not Indicated; Glucose, Urine Negative (Negative); Ketones,Urine Negative (Negative); Leukocyte Esterase,Urine Negative (Negative); Nitrite,Urine Negative (Negative); PH,Urine 7.5 (5.0-7.0); Protein,Urine Negative (Neg - Trace); RBC,Urine 1 /hpf (0-3); Specific Gravity,Urine 1.014 (1.001-1.035); Squamous Epithelial Cell,Urine 6 /hpf (0-5); Urobilinogen,Urine Negative mg/dL (0.0-1.0); WBC,Urine 3 /hpf (0-5)
--- NOTE | 2025-01-05 11:27 | PD.EDABDPN ---
ED Abdominal Pain RME/HPI General Chief Complaint: Abdominal Pain Stated complaint: ABD PAIN/CRAMPS, DIARRHEA; HX GERD; NO MEDS TAKEN Time seen by provider: 01/05/25 07:35 Arrival date/time: 01/05/25 07:17 44-year-old female presents to the emerged part today for complaints of abdominal pain abdominal cramping nausea vomiting and diarrhea ongoing for the last couple of days Limitations: no limitations Related Data Home Medications ?Medication ?Instructions ?Recorded ?Confirmed ergocalciferol (vitamin D2) 1,250 1,250 mcg PO QWEEK 08/18/21 04/23/22 mcg (50,000 unit) capsule levothyroxine 137 mcg tablet 137 mcg PO QDAY 08/18/21 04/23/22 Previous Rx's ?Medication ?Instructions ?Recorded hydrocortisone acetate 25 mg 25 mg KS BID #24 ea 08/06/22 rectal suppository (Anusol-HC) meclizine 50 mg tablet 50 mg PO BID PRN dizziness #20 tabs 03/26/23 albuterol sulfate 90 mcg/actuation 2 puff inhalation Q6H PRN 06/27/23 aerosol inhaler (Ventolin HFA) shortness of breath or wheezing #8.5 grams dicyclomine 20 mg tablet 20 mg PO BID #14 tabs 11/29/23 prednisone 50 mg tablet 50 mg PO QDAY #7 tabs 02/11/24 famotidine 20 mg tablet (Pepcid) 20 mg PO BID 30 days #60 tabs 01/05/25 loperamide 2 mg capsule (Imodium 2 mg PO Q6H PRN loose stool #14 01/05/25 A-D) caps ondansetron 4 mg disintegrating 4 mg PO Q8H PRN nausea and 01/05/25 tablet vomiting #10 tabs Allergies Allergy/AdvReac Type Severity Reaction Status Date / Time No Known Allergies Allergy Verified 01/05/25 07:24 Review of Systems Review of Systems Systems Reviewed: All systems reviewed, normal except as documented Constitutional Constitutional: Reports system reviewed and no additional complaints, except as documented, Denies fever(s) and Denies headache(s) Eyes Eyes: Reports system reviewed and no additional complaints, except as documented and Denies blurry vision ENT Ears, Nose, Mouth, and Throat: Reports system reviewed and no additional complaints, except as documented, Denies headache(s), Denies nasal congestion and Denies nasal discharge Cardiovascular Cardiovascular: Reports system reviewed and no additional complaints, except as documented, Denies chest pain and Denies dyspnea Respiratory Respiratory: Reports system reviewed and no additional complaints, except as documented, Denies chest congestion, Denies cough and Denies dyspnea Gastrointestinal Gastrointestinal: Reports system reviewed and no additional complaints, except as documented, Reports abdominal pain, Reports loose stools, Reports nausea and Reports vomiting Integumentary/Breasts Skin/Breast: Reports system reviewed and no additional complaints, except as documented and Denies rash Neurologic Neurologic: Reports system reviewed and no additional complaints, except as documented, Reports as per HPI and Denies headache(s) Past Medical History Past Medical History NEUROLOGIC: Negative Neurological Disorders or Seizures CARDIAC: Negative Cardiac Disorders or Congestive Heart Failure RESPIRATORY: Negative Chronic Obstructive Pulmonary Disease (COPD) or Asthma GASTROINTESTINAL: Positive Gastrointestinal Disorders, Hiatal Hernia, Gastroesophageal Reflux Disease and Obesity; Negative Hepatitis or Colorectal Cancer GENITOURINARY: Negative Genitourinary Disorders or Renal Disease REPRODUCTIVE: Positive Previous Pregnancies; Negative Breast Cancer MUSCULOSKELETAL: Positive Arthritis; Negative Musculoskeletal Disorders or Bone Cancer ENDOCRINE: Positive Endocrine Disorders and Hypothyroidism; Negative Diabetes Mellitus Type 1 or Diabetes Mellitus Type 2 HEMATOLOGIC: Positive Anemia; Negative Blood Disorders or Sickle Cell Disease PSYCHO/SOCIAL: Positive Anxiety OTHER HISTORY: Positive Hospitalization; Negative Autoimmune Disease, Down Syndrome, Developmental Delay, Shingles, Falls, Blood Transfusions, Blood Transfusion Reaction, Anesthesia Reactions, Organ Transplant, Chemotherapy, Radiation Therapy, Hyperbaric Therapy, MRSA, VRSA, Vancomycin-Resistant Enterococci, Human Immunodeficiency Virus (HIV), Chicken Pox, Measles, Mumps, Rubella ([place]ish Measles), Pertussis, Clostridium Difficile, Cancer, Breast Cancer, Cervical Cancer, Colorectal Cancer, Lung Cancer or Ovarian Cancer Family History FAMILY HISTORY: Positive Family Respiratory Disorders, Family Cardiac Disorders and Family Gastrointestinal Problems; Negative Family Psychiatric Problems, Family Cancer, Family Surgery or Family Anesthesia Reaction Surgical History SURGICAL: Positive Abdominal Surgery, Open Reduction Internal Fixation and Section; Negative Organ Transplant Social History SMOKING STATUS: Never smoker SECOND HAND EXPOSURE: No SUBSTANCE USE: does not use ED Exam General Limitations: Present no limitations General appearance: Present alert and in no apparent distress Head Head exam: Present atraumatic, normocephalic and normal inspection Eye Eye exam: Present normal appearance, PERRL and EOMI; Absent conjunctival injection ENT ENT exam: Present normal exam, normal oropharynx and mucous membranes moist Neck Neck exam: Present normal inspection, full ROM and trachea midline Chest Chest inspection: Present normal inspection and symmetric chest wall rise Respiratory Respiratory exam: Present normal lung sounds bilaterally; Absent respiratory distress Cardiovascular Cardiovascular exam: Present regular rate, normal rhythm and normal heart sounds Abdominal Exam Abdominal exam: Present soft and normal bowel sounds; Absent distention, tenderness, guarding, rebound or rigidity Extremities Exam Extremities exam: Present normal inspection and full ROM Back Exam Back exam: Present normal inspection and full ROM Neurological Exam Neurological exam: Present alert, oriented X3 and CN II-XII intact Psychiatric Psychiatric exam: Present normal affect and normal mood Skin Skin exam: Present warm, dry, intact and normal color Course Quality Measures none Orders Category Date Time Status CT abdomen pelvis wo con Stat Exams 01/05/25 07:38 Completed US pelvic complete Stat Exams 01/05/25 09:23 Completed CBC Stat Lab 01/05/25 08:09 Completed Comprehensive Metabolic Panel Stat Lab 01/05/25 08:09 Completed Lipase Stat Lab 01/05/25 08:09 Completed Path Review Blood Smear Stat Lab 01/05/25 08:09 Completed UA, C/S IF [Urinalysis, C/S if Indicated] Stat Lab 01/05/25 10:22 Completed Vital Signs Vital signs: Vital Signs Temperature 98.1 F 01/05/25 07:30 Pulse Rate 61 01/05/25 07:30 Respiratory Rate 19 01/05/25 07:30 Blood Pressure 128/73 01/05/25 07:30 Pulse Oximetry (%) 100 01/05/25 07:30 Oxygen Delivery Method Room Air 01/05/25 07:30 O2 saturation 100% room air with normal limits Abdominal Pain MDM MDM Narrative MDM Narrative:: 44-year-old female presents to the department today for complaints of abdominal pain abdominal cramping nausea vomiting and diarrhea ongoing for the last couple of days Lab work obtained no acute emergent findings noted CT ordered and reviewed per CT scan Per radiologist There appears to be mild inflammatory change involving the peritoneum in the pelvis, clinical correlation advised Ultrasound obtained FINDINGS: Uterus 12.5 cm Hyperechoic lesion in the endometrium 17 x 12 x 16 mm Endometrial stripe 12 mm Right ovary 3.6 cm arterial flow. Left ovary obscured by bowel gas IMPRESSION: Endometrial mass, 17 x 12 x 16 mm, differential would include early malignant neoplasm of the endometrium, recommend transvaginal pelvic sonography follow-up I explained to the patient she must follow-up with PCP as soon as possible in order to get this evaluated further patient was given a copy of her ultrasound report patient states understanding states she will follow-up Patient data External records reviewed:: [facility] previous records Clinical information provided by:: patient Social determinants that could affect healthcare access:: none Patient has the following chronic illnesses:: See history How is presenting disease/condition affected by chronic disease/condition?: uneffected by Evaluation data The following diagnostics were reviewed and interpreted by me:: lab results and radiology exam(s) Lab and/or radiology exams considered but not ordered:: Labs radiology obtain Interpretation Summary: Reviewed by me Medications / Prescriptions Medications or Prescriptions considered but not ordered:: Given Medication administrations:: Given Consultations Consultation(s) initiated? (list below): No Diagnosis Differential diagnosis abdominal pain: abdominal pain, acute appendicitis and small bowel obstruction Most likely diagnosis given after review of the tests above:: Abdominal pain, endometrial mass Admission Indicated Admission indicated?: not indicated Admission Request Was there a request for admission?: No Disposition Plan Disposition Plan: Discharge Discharge Attestation Discharge Attestation: The patient and all family members were given an opportunity to ask questions and understood the discharge instructions. Discharge instructions specifically effects, indications for sooner follow up or return to the emergency department, and the expected course of current diagnosis. Patient condition: Stable Discharge Plan Plan Patient Disposition: HOME (Self Care) Discharge Disposition comment: Stable Prescriptions/Referrals Prescriptions/Med Rec: New loperamide [Imodium A-D] 2 mg capsule 2 mg PO Q6H PRN (Reason: loose stool) Qty: 14 0RF famotidine [Pepcid] 20 mg tablet 20 mg PO BID 30 Days Qty: 60 0RF ondansetron 4 mg tablet,disintegrating 4 mg PO Q8H PRN (Reason: nausea and vomiting) Qty: 10 0RF No Action levothyroxine 137 mcg tablet 137 mcg PO QDAY Patient Comments: TAKE 1 TABLET BY MOUTH EVERY DAY ergocalciferol (vitamin D2) 1,250 mcg (50,000 unit) capsule 1,250 mcg PO QWEEK Patient Comments: TAKE 1 CAPSULE BY MOUTH ONCE A WEEK dicyclomine 20 mg tablet 20 mg PO BID Qty: 14 0RF hydrocortisone acetate [Anusol-HC] 25 mg suppository 25 mg [place] BID Qty: 24 0RF meclizine 50 mg tablet 50 mg PO BID PRN (Reason: dizziness) Qty: 20 0RF albuterol sulfate [Ventolin HFA] 90 mcg/actuation HFA aerosol inhaler 2 puff inhalation Q6H PRN (Reason: shortness of breath or wheezing) Qty: 8.5 0RF prednisone 50 mg tablet 50 mg PO QDAY Qty: 7 0RF Referrals: Ceci Cunningham [employer] [Primary Care Provider] - 01/07/25 Problem List Clinical Impression: Abdominal pain, Endometrial mass Patient/Caregiver Discharge Instructions Education Materials: Measuring Your Pain Additional Instructions: Please follow-up with [employer] as soon as possible for worsening symptoms return immediately Print Language: [place] Stand Alone Forms: Elizabeth Award Info., Patient Portal Info Letter PA/BELT PRESS OPERATOR Supervising Physician PA/BELT PRESS OPERATOR Supervising Physician: Dr mirza
[2025-01-05 12:11] LABS: Path Review Blood Smear Sent to Pathologist
== END 2025-01-05 11:38 | disposition home or self-care (01) ==
PROVIDERS: Emergency Provider Nurse Practitioner Primary Care; PCP Nurse Practitioner Family
DX: N94.89 Other specified conditions associated with female genital organs and menstrual cycle (principal)
CPT/HCPCS: 36415; 74176; 76856; 80053; 81001; 83690; 85025; 99284